=== PATIENT | female | born 1965 | race Caucasian/White ===

== ENCOUNTER 2023-12-06 10:54 | Outpatient (OUT) | payer OTHER, SELFPAY | END 2023-12-06 10:55 | disposition home or self-care (01) | PROVIDERS: PCP Family Medicine; Visit Provider Family Medicine | DX: G47.33 Obstructive sleep apnea (adult) (pediatric) (principal) | CPT/HCPCS: 95806 ==

== ENCOUNTER 2024-01-24 20:54 | Outpatient (OUT) | payer OTHER, SELFPAY ==
--- OUTSIDE RECORDS SUMMARY | 2024-01-24 20:59 | XMS_ITS | CCD ---
Author Name Unknown Address [id number] [place] [address] Organization [facility] Care Team Providers Care Bucket Pusher Name Role Phone Arpita Cross Primary Care Provider ANDREI MONTAÑO Referring Unavailable ARPITA CROSS Primary Care Unavailable Kam Reid MD Primary Care Provider DR KAM REID Attending Unavailable FRANKLIN, DR STEWARD Primary Care Unavailable FRANKLIN, DR STEWARD Admitting Unavailable Velia BHAKTA, Guera Case Attending Sandie Kam Ashby MD Primary Care Sesar Gunn PA-C, Guera Case Attending Sandie Kam Ashby MD Primary Care Kam Burrows MD Primary Care Provider [phone] KAM REID Referring Unavailable KAM REID Primary Care Unavailable KAM REID Referring Unavailable KAM REID Primary Care Unavailable KAM REID Primary Care Unavailable KAM REID Referring Unavailable Kam Reid MD Unavailable [phone] Kam Reid MD Primary Care Provider Kam Reid MD Unavailable Kam Reid MD Unavailable KAM REID Attending Unavailable KAM REID Attending Unavailable KAM REID Attending Unavailable Allergies Allergy Classification Reported Allergen(s) Allergy Type Date of Onset Reaction(s) Facility (5 sources) Acetaminophen / HYDROcodone Drug Allergy 4 Nausea And Vomiting [facility], [place] (6 sources) Cortisone; Translations: [cortisone] Drug Allergy 4 Other (See Comments) [place], [place] (3 sources) HYDROmorphone Drug Allergy 6 Swelling [place] (5 sources) Lactase / Lactobacillus acidophilus Drug Allergy 5 [place] (6 sources) Morphine; Translations: [morphine] Drug Allergy 6 Other (See Comments) [place] (5 sources) WHEAT DEXTRIN Drug Allergy 5 [place] (5 sources) Eggs Or Egg-Derived Products Propensity to adverse reactions to drug 5 [place] (1 source) Other Propensity to adverse reactions 5 [place] (5 sources) Wound Dressings Propensity to adverse reactions to drug 7 Other (See Comments) [place] (1 source) Acetaminophen / HYDROcodone; Translations: [Vicodin] Drug Allergy [facility] (1 source) Adhesive bandage; Translations: [Adhesive Bandage] Propensity to adverse reactions (disorder) [facility] (1 source) egg extract; Translations: [egg] Drug Allergy [facility] (1 source) HYDROmorphone; Translations: [Dilaudid] Drug Allergy [facility] (1 source) Wheat preparation; Translations: [Wheat] Drug Allergy [facility] (1 source) Milk Products; Translations: [Milk Products] Propensity to adverse reactions to food (disorder) [facility] (2 sources) HYDROmorphone Drug Allergy 6 Swelling [facility] (2 sources) Meperidine Drug Allergy 3 [facility] (2 sources) Milk-Related Compounds Propensity to adverse reactions 3 Dermatitis, Diarrhea, GI intolerance, Headache, Itching, Swelling [facility] NEGATED: Highlighted row has been ruled out! (2 sources) Other Propensity to adverse reactions 5 [facility] Medications Current Medications Medication Drug Class(es) Dates Sig (Normalized) Sig (Original) B Complex Vitamins (VITAMIN B COMPLEX PO) (2 sources) take 1 tablet by mouth in the morning B Complex Vitamins (VITAMIN B COMPLEX PO) Take 1 tablet by mouth in the morning. 0 Active cholecalciferol 0.05 mg oral capsule (5 sources) Vitamin D take 1 tablet by mouth in the morning cholecalciferol (Vitamin D-3) 50 MCG (2000 UT) capsule Take 1 tablet by mouth in the morning. 0 Active losartan potassium 50 mg oral tablet (2 sources) Angiotensin 2 Receptor Darshan Start: 11-23-2023 End: 05-21-2024 take 1 tablet by mouth in the morning losartan (Cozaar) 50 MG tablet Indications: Primary hypertension (CMS/HCC) Take 1 tablet (50 mg) by mouth in the morning. 90 tablet 1 11/23/2023 05/21/2024 Active 24 hr metFORMIN hydrochloride 750 mg extended release oral tablet (2 sources) Biguanide Start: 11-23-2023 End: 02-21-2024 take 1 tablet by mouth every twenty-four hours in the morning metFORMIN XR (Glucophage-XR) 750 MG 24 hr tablet Indications: Type 2 diabetes mellitus with microalbuminuria, without long-term current use of insulin (CMS/HCC) Take 1 tablet (750 mg) by mouth in the morning and 1 tablet (750 mg) before bedtime. Do not crush, chew, or split.. 180 tablet 0 11/23/2023 02/21/2024 Active multivitamin (THERAGRAN) per tablet (3 sources) take 1 tablet by mouth once daily multivitamin (THERAGRAN) per tablet Take 1 tablet by mouth daily. 0 Active multivitamin (Theragran) tablet (2 sources) take 1 tablet by mouth in the morning multivitamin (Theragran) tablet Take 1 tablet by mouth in the morning. 0 Active Probiotic Product (PROBIOTIC BLEND PO) (2 sources) take 1 tablet by mouth in the morning Probiotic Product (PROBIOTIC BLEND PO) Take 1 tablet by mouth in the morning. 0 Active Probiotic Product (PROBIOTIC DAILY PO) (3 sources) take 1 capsule by mouth once daily Probiotic Product (PROBIOTIC DAILY PO) Take 1 capsule by mouth daily. 0 Active thyroid (residential) 60 mg oral tablet (2 sources) Start: 12-06-2023 End: 06-03-2024 take 1 tablet by mouth in the morning thyroid ([place]) 60 MG tablet Indications: ESS (euthyroid sick syndrome) Take 1 tablet (60 mg) by mouth in the morning and 1 tablet (60 mg) in the evening. Take before meals. 180 tablet 1 12/06/2023 06/03/2024 Active Completed/Discontinued Medications Medication Drug Class(es) Dates Sig (Normalized) Sig (Original) amoxicillin 500 mg oral capsule (2 sources) Penicillin-class Antibacterial Start: 11-19-2017 End: 08-03-2021 take 1 tablet by mouth twice daily amoxicillin (AMOXIL) 500 MG capsule 1 tab PO BID x 10 days 20 capsule 0 11/19/2017 08/03/2021 Discontinued (Therapy completed) ergocalciferol 1.25 mg oral capsule (2 sources) Provitamin D2 Compound End: 08-03-2021 take 1 capsule by mouth every week vitamin D (ERGOCALCIFEROL) 89820 UNITS CAPS capsule Take 50,000 Units by mouth once a week. 0 08/03/2021 Discontinued (Therapy completed) levothyroxine sodium 0.025 mg oral tablet (2 sources) l-Thyroxine End: 08-03-2021 take 1 tablet by mouth twice daily levothyroxine (SYNTHROID) 25 MCG tablet Take 25 mcg by mouth 2 times daily 0 08/03/2021 Discontinued (Therapy completed) liothyronine sodium 0.05 mg oral tablet (2 sources) l-Triiodothyronine End: 08-03-2021 take 1 tablet by mouth twice daily liothyronine (CYTOMEL) 50 MCG tablet Take 50 mcg by mouth 2 times daily 0 08/03/2021 Discontinued (Therapy completed) Problems Active Problems Problem Classification Problem Date Documented Date Episodic/Chronic Complications of surgical procedures or medical care (2 sources) Postsurgical menopause; Translations: [Asymptomatic postprocedural ovarian failure] Onset: 05-17-2023 05-17-2023 Chronic Diabetes mellitus with complications (2 sources) Type 2 diabetes mellitus; Translations: [Type 2 diabetes mellitus with other diabetic kidney complication] Onset: 05-17-2023 05-17-2023 Chronic Essential hypertension (2 sources) Essential hypertension; Translations: [Essential (primary) hypertension] Onset: 05-17-2023 05-17-2023 Chronic Heart valve disorders (2 sources) Mitral valve disorder; Translations: [Rheumatic mitral valve disease, unspecified] Onset: 05-21-2012 07-05-2023 Chronic Hypertension with complications and secondary hypertension (1 source) Hypertensive urgency ; Translations: [Hypertensive urgency] Chronic Malaise and fatigue (2 sources) Fatigue; Translations: [Chronic fatigue, unspecified] Onset: 05-17-2023 05-17-2023 Chronic Menopausal disorders (4 sources) Ovarian failure; Translations: [Other primary ovarian failure] Onset: 05-17-2023 05-17-2023 Chronic Other connective tissue disease (3 sources) Pain in left arm; Translations: [Pain in left arm] Onset: 11-21-2023 Episodic Other nervous system disorders (2 sources) Disturbance of attention; Translations: [Attention and concentration deficit] Onset: 05-17-2023 05-17-2023 Chronic Other non-traumatic joint disorders (3 sources) Pain in left elbow; Translations: [Pain in left elbow] Onset: 11-21-2023 Episodic Other nutritional; endocrine; and metabolic disorders (3 sources) Morbid obesity; Translations: [Morbid (severe) obesity due to excess calories] Onset: 05-17-2023 05-17-2023 Chronic Other upper respiratory disease (2 sources) Allergic rhinitis; Translations: [Allergic rhinitis, unspecified] Onset: 05-21-2012 07-05-2023 Chronic Residual codes; unclassified (4 sources) Obstructive sleep apnea (adult) (pediatric); Translations: [OBSTRUCTIVE SLEEP APNEA] Onset: 04-20-2022 Chronic Residual codes; unclassified (3 sources) Obstructive sleep apnea syndrome; Translations: [Obstructive sleep apnea (adult) (pediatric)] Onset: 05-17-2023 05-17-2023 Chronic Residual codes; unclassified (3 sources) Hypoxia; Translations: [Idiopathic sleep related nonobstructive alveolar hypoventilation] Onset: 05-17-2023 05-17-2023 Chronic Residual codes; unclassified (1 source) Pain; Translations: [Pain, unspecified] 11-21-2023 Episodic Residual codes; unclassified (1 source) Pain, unspecified; Translations: [Pain, unspecified] Onset: 11-21-2023 Episodic Skin and subcutaneous tissue infections (3 sources) Cellulitis of left upper limb; Translations: [Cellulitis of left upper limb] Onset: 11-21-2023 Episodic Spondylosis; intervertebral disc disorders; other back problems (4 sources) Cervical disc disorder; Translations: [Cervical disc disorder, unspecified, unspecified cervical region] Onset: 09-21-2016 07-05-2023 Chronic Thyroid disorders (2 sources) Acquired hypothyroidism; Translations: [Hypothyroidism, unspecified] Onset: 05-17-2023 05-17-2023 Chronic Past or Other Problems Problem Classification Problem Date Documented Da te Episodic/Chronic Genitourinary symptoms and ill-defined conditions (2 sources) Microalbuminuria; Translations: [Proteinuria, unspecified] Onset: 05-17-2023 05-17-2023 Episodic Other circulatory disease (2 sources) Orthostatic hypotension; Translations: [Orthostatic hypotension] Onset: 05-10-2012 07-05-2023 Episodic Other connective tissue disease (2 sources) Olecranon bursitis; Translations: [Olecranon bursitis, unspecified elbow] Onset: 05-21-2012 07-05-2023 Episodic Pneumonia (except that caused by tuberculosis or sexually transmitted disease) (3 sources) Pneumonia; Translations: [Pneumonia, unspecified organism] Onset: 10-01-2012 10-01-2012 Episodic Residual codes; unclassified (2 sources) FH: Autoimmune disease; Translations: [Family history of diseases of the blood and blood-forming organs and certain disorders involving the immune mechanism] Onset: 09-25-2019 07-05-2023 Episodic Thyroid disorders (2 sources) Sick-euthyroid syndrome; Translations: [Sick-euthyroid syndrome] Onset: 05-17-2023 05-17-2023 Episodic Results Test Name Value Interpretation Reference Range Facility US EXTREMITY LEFT NON VASC L IMITEDon 12-15-2023 US EXTREMITY LEFT NON VASC LIMITED EXAMINATION: NONVASCULAR ULTRASOUND OF THE LEFT EXTREMITY 12/14/2023 4:34 pm COMPARISON: None. HISTORY: ORDERING SYSTEM PROVIDED HISTORY: Left arm pain FINDINGS: Direct scanning was performed over an area of interest indicated by the patient in the left arm/biceps/forearm region. By ultrasound no discrete mass or fluid collection is seen. IMPRESSION: Unremarkable exam Interpreted by: Shaka Soliman MD Signed by: Shaka Soliman MD 12/15/23 Final result Normal [facility] XR ELBOW LEFT (MIN 3 VIEWS)o n 11-24-2023 XR ELBOW LEFT (MIN 3 VIEWS) EXAMINATION: THREE XRAY VIEWS OF THE LEFT ELBOW 11/21/2023 4:22 pm COMPARISON: None. HISTORY: ORDERING SYSTEM PROVIDED HISTORY: Pain FINDINGS: No acute fracture or dislocation is identified.The joint spaces appear normal. IMPRESSION No evidence of fracture or arthritis. Interpreted by: Torres Nieves MD Signed by: Torres Nieves MD 11/24/23 Final result Normal [facility] Gynecology Office/Clinic Not amber 03-08-2023 Gynecology Office/Clinic Note Chief Complaint Annual History of Present Illness Pelvic Pain: No Painful Sex: No Abnormal Vaginal Discharge: No Abnormal Vaginal Bleeding: No Vaginal Dryness: No Vaginal Itch: No Vaginal Burning: No Vaginal Odor: No Hot Flashes: No Night Sweats: No Breast Lump: No Breast Pain: No Contraception Type: None Age Menses Started: 18 Menstrual Periods: No Reason for No Menstrual Periods: Partial hysterectomy Age of Menopause: 43 Sexually Active: Yes Comments 03/08/23 14:05:00 57 y/o, , , Annual Exam. No further left pelvic pain. No bowel/bladder complaints. Youngest son will be graduating this year. 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 Last pap: Hx TLH, RT OOPH. Mammogram: 03/25/22, Benign, Colonoscopy: 2016 Dr. W[place] 10 years, BD: 03/19/18, Normal Labs: PCP Dr. Reid yearly Review of Systems Head Migraines: No Headaches: No Eyes Corrective Lenses: Glasses Blurred vision: None Ears, Nose, Throat Congestion: No Vertigo: No Sore throat: No Nasal drainage: No Cardio Respiratory Peripheral edema: No Heart Irregularity: No Chest Pain: No Shortness of Breath: No Gastrointestinal Bloating: No Reflux/heartburn: No Abdominal Pain: No Change in bowel habits: No Urinary Urinary Incontinence: No Urinary frequency: No Nocturia: No Urgency: No Painful urination: No Musculoskeletal Back pain: No Muscle aches: No Joint pain: No Integumentary Lesions: No Moles: No Acne: No Hair changes: No Psycho Social Sleep Problems: No Anxiety: No Suicidal Ideation: No Homicidal Ideation: No Depression: No Hematologic/Lymphat ic Lymphadenopathy: No Thromboembolism: No Bruising: No Bleeding tendencies: No Endocrine Abnormal weight gain: No Abnormal weight loss: No Fatigue: No Physical Exam Vitals & Measurements BP: 110/78 HT: 175 cm WT: 112.6 kg WT: 112.6 kg (Dosing) BMI: 36.77 General: Alert and oriented, well nourished, no acute distress. Eye: PERRL, EOMI, normal conjunctiva. HEENT:Normocephalic , clear tympanic membranes, normal hearing, moist oral mucosa, no scleral icterus, no sinus tenderness. Neck: Supple, non-tender, no carotid bruits, no JVD, no lymphadenopathy. Lungs: Clear to auscultation and percussion, non-labored respiration. Heart: Normal rate, regular rhythm, no murmur, gallop or edema. Abdomen: Soft, non-tender, non-distended, normal bowel sounds, no masses. Musculoskeletal: Normal range of motion and strength, no tenderness or swelling. Skin: Skin is warm, dry and pink, no rashes or lesions. Neurologic: Awake, alert, and oriented X3, CN II-XII intact. Psychiatric: Cooperative, appropriate mood and affect. Breast exam: No fibrocystic changes noted bilaterally, no masses, tenderness, skin changes or nipple discharge. External Genitalia: Normal urethral meatus, no lesions, vulvar skin intact. Genitourinary: Atrophic vaginal mucosa, no lesions or abnormal discharge, cervix surgically absent, no bleeding. No cystocele or rectocele. Bimanual exam: Absent uterus-s/p TLH rt ooph. No adnexal tenderness or masses. Additional Vitals BP Position/Location: Sitting, Right arm Assessment/Plan 1. Encounter for gynecological examination (general) (routine) without abnormal findings Annual exam 1. Continue with breast self-exam/mammogram /colonoscopy screening 2. Maintain a low-fat, low sugar diet 3. Weight management, BMI, exercise (30 minutes daily) 4. Water intake (64 oz daily) and decrease caffeine 5. Calcium supplement with Vitamin D 6. Discussed menopausal symptom management-symptoms resolved and no issues F/u 1 year for annual exam and she will call with any questions/problems prior to next appt. 2. Absence of both cervix and uterus, acquired 3. Menopausal symptom Medical Decision Making Chronic conditions NOT treated during this visit that affected my overall medical decision making: POTS, hypothyroid Treatment plans discussed but not opted for at this time: see above Prescribed medication that requires intensive monitoring for toxicity: no I have reviewed the patient?s medication list for medication interactions/contra indications and/or for upcoming procedures: no Time Spent with the Patient I have personally spent 28 minutes on this date, directly related to today's patient visit, including pre and post visit work, for this date of service. Time listed does not include time spent on separately billable services. Problem List/Past Medical History Ongoing Absence of both cervix and uterus, acquired Arthritis pain, shoulder Cervical radiculopathy Encounter for gynecological examination (general) (routine) without abnormal findings History of fusion of cervical spine Hypothyroidism Menopausal symptom POTS Historical Hypertension Medication management Procedure/Surgical History section ( (more content not included)... Normal [facility] 36on 10-06-2022 36 We received faxed request for 90 day script for Losartan from [facility]. Refill sent [facility] 09-22-2022 36 Msg to pt she needs a follow up appt [facility] 3609-21-2022 36 Approving, but needs appt for additional refills. Normal [facility] CBC Auto DifferentialOrdered By: Stan Varela on 08-03-2021 Absolute Eos # 0.06 Real Time Content [facility] Work Phone: Absolute Immature Granulocyte 0.00 [employer] Work Phone: Absolute Lymph # 2.45 [employer] Work Phone: Absolute [place] # 0.34 [employer] Work Phone: Basophils (Bld) [#/Vol] 0.06 10*3/uL [employer] Work Phone: Basophils/100 WBC (Bld) 1 % 0 - 2 % M [employer] Work Phone: Differential Type NOT REPORTED [facility] Phone: Eosinophils/100 WBC (Bld) 1 % 1 - 4 % [employer] Phone: Hematocrit (Bld) [Volume fraction] 42.3 % 36.3 - 47.1 % [employer] Work Phone: Hemoglobin.gastrointesti nal spec 1 Ql (Stl) 14.1 g/dL 11.9 - 15.1 g/dL [employer] Phone: Immature granulocytes/100 WBC (Bld) 0 % 0 [employer] Phone: Lymphocytes/100 WBC (Bld) 43 % 24 - 43 % [employer] Phone: MCH (RBC) [Entitic mass] 30.9 pg 25. 2 - 33.5 pg [employer] Phone: MCHC (RBC) [Mass/Vol] 33.3 g/dL 28.4 - 34.8 g/dL [employer] Phone: MCV (RBC) [Entitic vol] 92.8 fL 82.6 - 102.9 fL [employer] Phone: Monocytes/100 WBC (Bld) 6 % 3 - 12 % M [employer] Phone: Morphology [place] (Bld) [Interp] Normal [facility] Phone: NRBC Automated 0.0 0.0 per 100 WBC [facility] Phone: Platelet distribution width (Bld) [Ratio] 13.3 % 11.8 - 14.4 % [employer] Phone: Platelet Estimate NOT REPORTED [employer] Phone: Platelet mean volume (Bld) [Entitic vol] NOT REPORTED 8.1 - 13.5 fL [employer] Phone: Platelets (Bld) [#/Vol] See Reflexed IPF Result [employer] Phone: RBC (Bld) [#/Vol] 4.56 10*6/uL 3.95 - 5.1 1 m/uL [employer] Phone: RBC (Bld) [#/Vol] NOT REPORTED [employer] Phone: Segmented neutrophils/100 WBC (Bld) 49 % 36 - 65 % [employer] Phone: Segs Absolute 2.79 [employer] Work Phone: WBC (Bld) [#/Vol] 5.7 10*3/uL [employer] Phone: WBC (Bld) [#/Vol] NOT REPORTED [employer] Phone: [employer] Work Phone: Comprehensive Metabolic Pane l w/ Reflex to MGOrdered By: Stan Varela on 08-03-2021 Albumin [Mass/Vol] 4.6 g/dL 3.5 - 5.2 g/dL [facility] Phone: Albumin/Globulin [Mass ratio] 1.6 {ratio} [employer] Phone: ALP (Bld) [Catalytic activity/Vol] 86 U/L 35 - 104 U/L [facility] Phone: ALT [Catalytic activity/Vol] 20 U/L 5 - 33 U/L [facility] Phone: Anion gap [Moles/Vol] 14 mmol/L 9 - 17 mmol/L [facility] Phone: AST [Catalytic activity/Vol] 23 U/L <32 [facility] Phone: Bilirubin [Mass/Vol] 0.25 mg/dL Low 0.3 - 1 .2 mg/dL [facility] Phone: Calcium [Mass/Vol] 9.6 mg/dL 8.6 - 10. 4 mg/dL [facility] Phone: Chloride [Moles/Vol] 100 mmol/L 98 - 10 7 mmol/L [employer] Phone: CO2 [Moles/Vol] 25 mmol/L 20 - 31 mmol/L [facility] Phone: Creatinine [Mass/Vol] 0.61 mg/dL 0.50 - 0.90 mg/dL [facility] Phone: Free PSA/Total PSA [Mass fraction] 7.5 g/dL 6.4 - 8.3 g/dL [facility] [employer] Phone: GFR >60 >60 mL/min [facility] Phone: GFR Non- >60 >60 mL/min [facility] Phone: Glucose [Mass/Vol] 124 mg/dL High 70 - 99 mg/dL [facility] [employer] Phone: Interpretation and review of laboratory results Abnormal [facility] Phone: Potassium [Moles/Vol] 3.8 mmol/L 3.7 - 5.3 mmol/L [facility] [employer] Phone: Sodium [Moles/Vol] 139 mmol/L 135 - 144 mmol/L [facility] [employer] Phone: Urea nitrogen (BldV) [Mass/Vol] 12 mg/dL 6 - 20 mg/dL [facility] Phone: Urea nitrogen/Creatinine (Bld) [Mass ratio] 20 [facility] [employer] Phone: [facility] Phone: Immature Platelet FractionOr dered By: Stan Varela on 08-03-2021 Platelet, Fluorescence [address] [facility] [employer] Phone: Platelet, Immature Fraction 5.7 % 1.1 - 10.3 % [facility] Phone: [facility] Phone: Laboratory - Chemistry and C hemistry - challengeOrdered By: Stan Varela on 08-03-2021 GFR/1.73 sq M.predicted MDRD (S/P/Bld) [Vol rate/Area] [facility] Phone: Comment on above: Average GFR for 50-5 9 years old: 93 mL/min/1.73sq m Chronic Kidney Disease: <60 mL/min/1.73sq m Kidney failure: <15 mL/min/1.73sq m eGFR calculated using average adult body mass. Additional eGFR calculator available at: http://www.awesomize.me/multiple_crcl_2012.htm Stage 1: Some kidney damage normal GFR Stage 2: Mild kidney damage GFR 60-89 Stage 3: Moderate kidney damage GFR 30-59 Stage 4: Severe kidney damage GFR 15-29 Stage 5: Severe kidney damage GFR <15 ESRD - chronic treatment by dialysis or transplant TroponinOrdered By: Stan Varela on 08-03-2021 Troponin Interp NOT REPORTED [facility] Work Phone: Troponin T NOT REPORTED <0.03 ng/mL [facility] Work Phone: Troponin, High Sensitivity <6 0 - 14 ng/L [employer] Work Phone: Comment on above: High Sensitivity Troponin values cannot be compared with other Troponin methodologies. Patients with high levels of Biotin oral intake (i.e >5mg/day) may have falsely decreased Troponin levels. Samples collected within 8 hours of biotin intake may require additional information for diagnosis. [employer] Work Phone: Urinalysis, reflex to micros copicOrdered By: Stan Varela on 08-03-2021 Bilirubin Urine Negative NEGATIVE Real Time Content [facility] Work Phone: Color, UA YELLOW YELLOW [facility] Work Phone: Glucose, Ur Negative NEGATIVE [employer] Work Phone: Ketones Ql (U) Negative NEGATIVE [employer] Work Phone: Leukocyte esterase Test strip Ql (U) Negative NEGATIVE [employer] Work Phone: Nitrite, Urine Negative NEGATIVE [employer] Work Phone: pH, UA 7.0 [employer] Work Phone: Protein, UA Negative NEGATIVE [employer] Work Phone: Specific [place], UA 1.015 [facility] Work Phone: Turbidity UA CLEAR CLEAR [facility] Work Phone: Urinalysis Comments NOT REPORTED [facility] [employer] Work Phone: Urine Hgb Negative NEGATIVE [facility] Work Phone: Urobilinogen, Urine Normal Normal [facility] Work Phone: [facility] Work Phone: Bacterial susceptibility josue el by Ross 10-30-2019 Bacterial susceptibility panel by Minimum inhibitory concentration (ANNETTE) ORDERED BY: SUNIL RASMUSSEN SOURCE: Urine Voided Urine Voided COLLECTED: 10/30/19 11:30 ANTIBIOTICS AT GLADYS.: RECEIVED : 11/01/19 13:29 Culture, Urine FINAL 11/02/19 07:46 >100,000 CFU/ml Staphylococcus lugdunensis _ S. lug ANTIBIOTICS ANNETTE Interp _ Cefazolin S Ceftriaxone S Nitrofurantoin <=16 S Oxacillin <=0.25 S _ S=SUSCEPTIBLE I=INTERMEDIATE R=RESISTANT _ [facility] Comment on above: Performed By: #### 5 [id number] #### [facility] [address] [place] [address] Culture, Urineon 10-30-2019 Culture, Urine ORDERED BY: SUNIL RASMUSSEN SOURCE: Urine Voided Urine Voided COLLECTED: 10/30/19 11:30 ANTIBIOTICS AT GLADYS.: RECEIVED : 11/01/19 13:29 Culture, Urine INTERIM 11/01/19 13:29 >100,000 CFU/ml Staphylococcus coagulase-negative Sensitivity to follow [facility] Comment on above: Performed By: #### C XURN #### [facility] [address] [place] [address] Vital Signs Date Time Vital Sign Value Performing Clinician Facility 01-01-2024 16:34-0500 Body height 172.7 cm Kam Reid MD Work Phone: [facility] 01-01-2024 16:34-0500 Body mass index (BMI) [Ratio] 36.64 kg/m2 Kam Reid MD Work Phone: [facility] 01-01-2024 16:34-0500 Body weight 109.32 kg Kam Reid MD Work Phone: [facility] 01-01-2024 16:34-0500 Diastolic blood pressure 76 mm[Hg] Kam Reid MD Work Phone: [facility] 01-01-2024 16:34-0500 Heart rate 88 /min Kam Reid MD Work Phone: [facility] 01-01-2024 16:34-0500 SaO2% (BldA) [Mass fraction] 98 % Kam Reid MD Work Phone: [facility] 01-01-2024 16:34-0500 Systolic blood pressure 124 mm[Hg] Kam Reid MD Work Phone: [facility] 08-03-2021 16:57-0400 Diastolic blood pressure 88 mm[Hg] Stan Varela Jr., MD Work Phone: [employer] Work Phone: 08-03-2021 16:57-0400 Heart rate 78 /min Stan Varela Jr., MD Work Phone: [facility] Work Phone: 08-03-2021 16:57-0400 Respiratory rate 18 /min Stan Varela Jr., MD Work Phone: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
== END 2024-01-24 20:55 | disposition home or self-care (01) ==
LOC: SLEEP 20:55
PROVIDERS: PCP Family Medicine; Visit Provider Family Medicine
DX: G47.33 Obstructive sleep apnea (adult) (pediatric) (principal)
CPT/HCPCS: 95811